=== PATIENT | female | born 1945 | race Caucasian/White ===

== ENCOUNTER 2017-03-28 12:20 | Emergency (ER) | payer OTHER, MEDICARE ==
[~2017-03-28] VITALS: Ht 160 cm; Wt 81.6 kg
[2017-03-28 12:35] VITALS: BP_SYST 152
--- NOTE | 2017-03-28 12:35 | NUR ---
Pt placed in bed 8 with complaints of R lower abdominal pain for the past 2 and a half hours with nausea but denies vomiting or diarrhea. Pt denies trauma and no complaints of pain when touched. No other injuries/complaints per pt or noted.
--- NOTE | 2017-03-28 13:02 | NUR ---
Dr Hart at bedside examining patient
[2017-03-28 13:15] LABS: BASOPHILS # (AUTO) 0.1 K/uL (0.0-0.2); BASOPHILS % (AUTO) 0.5 % (0.0-2.0); EOSINOPHILS # (AUTO) 0.1 K/uL (0.0-0.4); EOSINOPHILS % (AUTO) 0.5 % (0.0-4.0); HEMATOCRIT 41.5 % (36-48); HEMOGLOBIN 13.7 g/dL (12.0-16.0); LYMPHOCYTES # (AUTO) 1.2 K/uL (1.0-5.5); LYMPHOCYTES % (AUTO) 10.6 % (20.5-51.5); MEAN CORPUSCULAR HEMOGLOBIN 28 pg (27-31); MEAN CORPUSCULAR HGB CONC 33 % (32-36); MEAN CORPUSCULAR VOLUME 86 fL (79.0-98.0); MONOCYTES # (AUTO) 0.6 K/uL (0.0-1.0); NEUTROPHILS # (AUTO) 9.2 K/uL (1.8-7.7); NEUTROPHILS % (AUTO) 83.4 % (40.0-70.0); PLATELET COUNT (AUTO) 378 K/uL (130-430); RED BLOOD CELL COUNT(AUTO) 4.83 MIL/uL (4.2-6.2); RED CELL DISTRIBUTION WIDTH 12.6 % (9.0-15.0); WHITE BLOOD COUNT (AUTO) 11.2 K/uL (4.8-10.8)
--- NOTE | 2017-03-28 13:22 | NUR ---
Pt went to radiology in stable condition
[2017-03-28 13:29] LABS: ANION GAP 9 (5-15); CALCIUM 9.5 mg/dL (8.4-11.0); CHLORIDE 101 mmol/L (98-107); CREATININE 0.99 mg/dL (0.55-1.30); GLUCOSE 136 mg/dL (70-99); SODIUM SERUM 139 mmol/L (136-145); UREA NITROGEN, BLOOD 31 mg/dL (8-21)
[2017-03-28 13:35] LABS: ALANINE AMINOTRANSFERASE 44 U/L (12-78); ASPARTATE AMINOTRANSFERASE 31 U/L (10-37); LIPASE 351 U/L (73-393); TOTAL BILIRUBIN 0.6 mg/dL (0.0-1.0)
--- NOTE | 2017-03-28 13:35 | NUR ---
Pt returned from radiology in stable condition
[2017-03-28] MEDS ORDERED: KETOROLAC TROMETHAMINE 60 MG/2 ML VIAL IM ONE (14:00)
--- NOTE | 2017-03-28 14:09 | NUR ---
Pt was given pain medicaiton, pt tolerated well. No noted adverse reaction. Will continue to monitor.
--- NOTE | 2017-03-28 14:42 | NUR ---
Patient given written and verbal discharge instructions and verbalizes understanding. ER MD discussed with patient the results and treatment provided. Patient in stable condition. ID arm band removed. Rx of toradol and cirpo given. Patient educated on pain management and to follow up with PMD. Pain Scale 3. Dr Hart aware, pain medication was given here and prescription for home. Opportunity for questions provided and answered.
[2017-03-28 14:44] VITALS: BP_SYST 148
== END 2017-03-28 14:42 | disposition home or self-care (01) ==
LOC: SED 12:20
DX: N13.2 Hydronephrosis with renal and ureteral calculous obstruction (principal); K76.0 Fatty (change of) liver, not elsewhere classified; Z88.0 Allergy status to penicillin
CPT/HCPCS: 36415; 74176; 80053; 83690; 85025; 96372; 99285; J1885

== ENCOUNTER 2020-10-15 17:46 | Inpatient (IN) | payer OTHER, MEDICARE ==
[~2020-10-15] VITALS: Ht 160 cm; Wt 69.6 kg
[2020-10-15 17:48] VITALS: BP_SYST 161
[2020-10-15] MEDS ORDERED: FUROSEMIDE 40 MG/4 ML VIAL IVP ONE (18:00)
[2020-10-15 18:26] LABS: BASOPHILS # (AUTO) 0.1 K/uL (0.0-0.2); BASOPHILS % (AUTO) 0.6 % (0.0-2.0); EOSINOPHILS # (AUTO) 0.7 K/uL (0.0-0.4); EOSINOPHILS % (AUTO) 4.5 % (0.0-4.0); HEMATOCRIT 39.6 % (36-48); HEMOGLOBIN 13.1 g/dL (12.0-16.0); LYMPHOCYTES # (AUTO) 1.9 K/uL (1.0-5.5); LYMPHOCYTES % (AUTO) 12.7 % (20.5-51.5); MEAN CORPUSCULAR HEMOGLOBIN 29 pg (27-31); MEAN CORPUSCULAR HGB CONC 33 % (32-36); MEAN CORPUSCULAR VOLUME 88 fL (79.0-98.0); MONOCYTES # (AUTO) 1.2 K/uL (0.0-1.0); MONOCYTES % (AUTO) 8.5 % (1.7-9.3); NEUTROPHILS # (AUTO) 10.8 K/uL (1.8-7.7); NEUTROPHILS % (AUTO) 73.7 % (40.0-70.0); PLATELET COUNT (AUTO) 231 K/uL (130-430); RED BLOOD CELL COUNT(AUTO) 4.51 MIL/uL (4.2-6.2); RED CELL DISTRIBUTION WIDTH 14.7 % (9.0-15.0); WHITE BLOOD COUNT (AUTO) 14.7 K/uL (4.8-10.8)
[2020-10-15] MEDS ORDERED: LORazepam 2 MG/ML VIAL IVP ONE (18:30)
[2020-10-15 18:42] LABS: ANION GAP 7 (5-15); CHLORIDE 105 mmol/L (98-107); CREATININE 1.01 mg/dL (0.55-1.30); GLUCOSE 115 mg/dL (70-99); POTASSIUM 3.9 mmol/L (3.5-5.1); SODIUM SERUM 141 mmol/L (136-145); UREA NITROGEN, BLOOD 24 mg/dL (8-21)
[2020-10-15 18:48] LABS: ALANINE AMINOTRANSFERASE 15 U/L (12-78); ALBUMIN 3.7 g/dL (3.4-4.8); ASPARTATE AMINOTRANSFERASE 21 U/L (10-37); TOTAL BILIRUBIN 0.8 mg/dL (0.0-1.0)
[2020-10-15 19:37] LABS: BILIRUBIN,URINE NEGATIVE (NEGATIVE); BLOOD, URINE NEGATIVE (NEGATIVE); CLARITY/URINE CLEAR (CLEAR); GLUCOSE,URINE NEGATIVE (NEGATIVE); KETONES,URINE NEGATIVE (NEGATIVE); LEUKOCYTE ESTERASE ,URINE NEGATIVE (NEGATIVE); NITRITE, URINE NEGATIVE (NEGATIVE); PROTEIN URINE NEGATIVE (NEGATIVE); UROBILINOGEN,URINE 0.2 (0.2-1.0)
[2020-10-15 19:38] LABS: COLOR,URINE STRAW (YELLOW)
[2020-10-15] MEDS ORDERED: CARV3.1246 PO (20:22)
[2020-10-15] MEDS ORDERED: SPIR25TA6 PO (20:22)
[2020-10-15] MEDS ORDERED: LISI10TA29 PO (20:22)
[2020-10-15] MEDS ORDERED: ACETAMINOPHEN 325 MG TABLET PO PRN (21:00)
[2020-10-15] MEDS: SPIRONOLACTONE 25 MG TABLET (ALDACTONE) PO SCH (21:00)
[2020-10-15] MEDS ORDERED: ZOLPIDEM TARTRATE 5 MG TABLET PO PRN (21:00)
[2020-10-15] MEDS ORDERED: MUPIROCIN 2% TOPICAL OINTMENT 22 GM NS PRN (21:00)
[2020-10-15] MEDS ORDERED: MAGNESIUM SULFATE 50 ML IV PRN (21:00)
[2020-10-15] MEDS ORDERED: LORazepam 2 MG/ML VIAL IVP PRN (21:00)
[2020-10-15] MEDS: LISINOPRIL 10 MG TABLET (PRINIVIL) PO SCH (21:00)
[2020-10-15] MEDS ORDERED: POTASSIUM CHLORIDE 20 MEQ TAB.PRT.SR PO PRN (21:00)
[2020-10-15] MEDS ORDERED: ONDANSETRON HCL 4 MG/2 ML VIAL IVP PRN (21:00)
[2020-10-15] MEDS: HEPARIN SODIUM,PORCINE 5,000 UNITS/ML VIAL SUBCUT SCH (21:00)
[2020-10-15] MEDS ORDERED: IPRATROPIUM/ALBUTEROL SULFATE 3 ML AMPUL.NEB (DUONEB) INH PRN (21:00)
[2020-10-15] MEDS ORDERED: DOCUSATE SODIUM 100 MG CAPSULE PO PRN (21:00)
[2020-10-15] MEDS: NACL 0.9% 1,000 ML IV SCH (21:06)
[2020-10-15 22:50] VITALS: BP_SYST 124
[2020-10-16 00:52] VITALS: BP_SYST 124
[2020-10-16 05:09] VITALS: BP_SYST 124
[2020-10-16] MEDS: NACL 0.9% 1,000 ML IV SCH (05:46)
[2020-10-16 06:52] LABS: BASOPHILS % (AUTO) 0.5 % (0.0-2.0); EOSINOPHILS # (AUTO) 0.5 K/uL (0.0-0.4); EOSINOPHILS % (AUTO) 5.4 % (0.0-4.0); HEMATOCRIT 38.4 % (36-48); HEMOGLOBIN 12.8 g/dL (12.0-16.0); LYMPHOCYTES # (AUTO) 1.3 K/uL (1.0-5.5); LYMPHOCYTES % (AUTO) 14.1 % (20.5-51.5); MEAN CORPUSCULAR HEMOGLOBIN 29 pg (27-31); MEAN CORPUSCULAR HGB CONC 33 % (32-36); MEAN CORPUSCULAR VOLUME 87 fL (79.0-98.0); MONOCYTES # (AUTO) 0.8 K/uL (0.0-1.0); MONOCYTES % (AUTO) 8.5 % (1.7-9.3); NEUTROPHILS # (AUTO) 6.5 K/uL (1.8-7.7); NEUTROPHILS % (AUTO) 71.5 % (40.0-70.0); PLATELET COUNT (AUTO) 228 K/uL (130-430); RED BLOOD CELL COUNT(AUTO) 4.43 MIL/uL (4.2-6.2); WHITE BLOOD COUNT (AUTO) 9.1 K/uL (4.8-10.8)
[2020-10-16 07:29] LABS: ANION GAP 9 (5-15); CALCIUM 9.4 mg/dL (8.4-11.0); CHLORIDE 105 mmol/L (98-107); CREATININE 0.98 mg/dL (0.55-1.30); GLUCOSE 102 mg/dL (70-99); POTASSIUM 4.6 mmol/L (3.5-5.1); SODIUM SERUM 145 mmol/L (136-145); UREA NITROGEN, BLOOD 23 mg/dL (8-21)
[2020-10-16 08:25] VITALS: BP_SYST 107
[2020-10-16] MEDS: HEPARIN SODIUM,PORCINE 5,000 UNITS/ML VIAL SUBCUT SCH ×2 (08:30→20:18)
[2020-10-16] MEDS: LISINOPRIL 10 MG TABLET (PRINIVIL) PO SCH ×2 (08:46→21:31)
[2020-10-16] MEDS ORDERED: CARVEDILOL 3.125 MG TABLET (COREG) PO SCH (09:00)
[2020-10-16] MEDS ORDERED: CARVEDILOL 3.125 MG TABLET (COREG) PO ONE (10:00)
[2020-10-16] MEDS ORDERED: FUROSEMIDE 20 MG/2 ML VIAL IVP ONE (10:30)
[2020-10-16 11:26] VITALS: BP_SYST 112
[2020-10-16 15:28] VITALS: BP_SYST 101
[2020-10-16 19:45] VITALS: BP_SYST 104
[2020-10-16] MEDS: CARVEDILOL 3.125 MG TABLET (COREG) PO SCH (20:18)
[2020-10-16] MEDS: SPIRONOLACTONE 25 MG TABLET (ALDACTONE) PO SCH (21:31)
[2020-10-17 00:59] VITALS: BP_SYST 104
[2020-10-17 06:49] LABS: BASOPHILS % (AUTO) 0.6 % (0.0-2.0); EOSINOPHILS # (AUTO) 0.8 K/uL (0.0-0.4); EOSINOPHILS % (AUTO) 10.3 % (0.0-4.0); HEMATOCRIT 38.6 % (36-48); HEMOGLOBIN 12.7 g/dL (12.0-16.0); LYMPHOCYTES # (AUTO) 1.9 K/uL (1.0-5.5); LYMPHOCYTES % (AUTO) 26.4 % (20.5-51.5); MEAN CORPUSCULAR HEMOGLOBIN 29 pg (27-31); MEAN CORPUSCULAR HGB CONC 33 % (32-36); MEAN CORPUSCULAR VOLUME 87 fL (79.0-98.0); MONOCYTES # (AUTO) 0.8 K/uL (0.0-1.0); MONOCYTES % (AUTO) 10.8 % (1.7-9.3); NEUTROPHILS # (AUTO) 3.8 K/uL (1.8-7.7); NEUTROPHILS % (AUTO) 51.9 % (40.0-70.0); PLATELET COUNT (AUTO) 218 K/uL (130-430); RED BLOOD CELL COUNT(AUTO) 4.45 MIL/uL (4.2-6.2); RED CELL DISTRIBUTION WIDTH 14.6 % (9.0-15.0); WHITE BLOOD COUNT (AUTO) 7.3 K/uL (4.8-10.8)
[2020-10-17 07:14] LABS: ANION GAP 7 (5-15); CALCIUM 9.1 mg/dL (8.4-11.0); CHLORIDE 105 mmol/L (98-107); CREATININE 0.81 mg/dL (0.55-1.30); GLUCOSE 87 mg/dL (70-99); POTASSIUM 3.9 mmol/L (3.5-5.1); SODIUM SERUM 143 mmol/L (136-145); UREA NITROGEN, BLOOD 22 mg/dL (8-21)
[2020-10-17 08:07] VITALS: BP_SYST 95
[2020-10-17] MEDS: LISINOPRIL 10 MG TABLET (PRINIVIL) PO SCH ×2 (09:00→20:39)
[2020-10-17] MEDS: CARVEDILOL 3.125 MG TABLET (COREG) PO SCH ×2 (09:00→20:40)
[2020-10-17] MEDS: HEPARIN SODIUM,PORCINE 5,000 UNITS/ML VIAL SUBCUT SCH ×2 (09:00→20:40)
[2020-10-17 11:50] VITALS: BP_SYST 113
[2020-10-17 15:25] VITALS: BP_SYST 119
[2020-10-17 20:00] VITALS: BP_SYST 127
[2020-10-17] MEDS: SPIRONOLACTONE 25 MG TABLET (ALDACTONE) PO SCH (20:39)
[2020-10-18] VITALS: BP_SYST 121
[2020-10-18 06:56] LABS: BASOPHILS % (AUTO) 0.5 % (0.0-2.0); EOSINOPHILS # (AUTO) 0.6 K/uL (0.0-0.4); EOSINOPHILS % (AUTO) 8.7 % (0.0-4.0); HEMATOCRIT 38.8 % (36-48); HEMOGLOBIN 12.7 g/dL (12.0-16.0); LYMPHOCYTES # (AUTO) 1.5 K/uL (1.0-5.5); LYMPHOCYTES % (AUTO) 20.5 % (20.5-51.5); MEAN CORPUSCULAR HEMOGLOBIN 29 pg (27-31); MEAN CORPUSCULAR HGB CONC 33 % (32-36); MEAN CORPUSCULAR VOLUME 87 fL (79.0-98.0); MONOCYTES # (AUTO) 0.7 K/uL (0.0-1.0); MONOCYTES % (AUTO) 9.4 % (1.7-9.3); NEUTROPHILS # (AUTO) 4.5 K/uL (1.8-7.7); NEUTROPHILS % (AUTO) 60.9 % (40.0-70.0); PLATELET COUNT (AUTO) 231 K/uL (130-430); RED BLOOD CELL COUNT(AUTO) 4.45 MIL/uL (4.2-6.2); RED CELL DISTRIBUTION WIDTH 14.8 % (9.0-15.0); WHITE BLOOD COUNT (AUTO) 7.4 K/uL (4.8-10.8)
[2020-10-18 06:59] LABS: ANION GAP 7 (5-15); CALCIUM 9.2 mg/dL (8.4-11.0); CHLORIDE 107 mmol/L (98-107); CREATININE 0.78 mg/dL (0.55-1.30); GLUCOSE 94 mg/dL (70-99); SODIUM SERUM 143 mmol/L (136-145); UREA NITROGEN, BLOOD 16 mg/dL (8-21)
[2020-10-18 08:00] VITALS: BP_SYST 121
[2020-10-18] MEDS: LISINOPRIL 10 MG TABLET (PRINIVIL) PO SCH (08:44)
[2020-10-18] MEDS: CARVEDILOL 3.125 MG TABLET (COREG) PO SCH ×2 (09:00→10:53)
[2020-10-18] MEDS: HEPARIN SODIUM,PORCINE 5,000 UNITS/ML VIAL SUBCUT SCH (09:00)
[2020-10-18] MEDS ORDERED: LORA10TA7 PO (10:02)
[2020-10-18] MEDS ORDERED: ALBU8.5H8 INH (10:02)
[2020-10-18 10:35] VITALS: BP_SYST 121
== END 2020-10-18 11:10 | disposition home or self-care (01) | DRG 292 ==
LOC: SED 17:46 → STU 18:50
PROVIDERS: ADMIT General Practice; ATTEND General Practice
DX: I11.0 Hypertensive heart disease with heart failure (principal); N39.0 Urinary tract infection, site not specified; J43.9 Emphysema, unspecified; I50.43 Acute on chronic combined systolic (congestive) and diastolic (congestive) heart failure; I34.0 Nonrheumatic mitral (valve) insufficiency; F17.210 Nicotine dependence, cigarettes, uncomplicated; R09.02 Hypoxemia; Z20.822 Contact with and (suspected) exposure to COVID-19; Z88.0 Allergy status to penicillin; Z88.2 Allergy status to sulfonamides; Z79.899 Other long term (current) drug therapy; Z87.440 Personal history of urinary (tract) infections; Z90.710 Acquired absence of both cervix and uterus
CPT/HCPCS: 36415; 71045; 80048; 80053; 81003; 83036; 83735; 83880; 84484; 85025; 85379; 93005; 93306; 93970; 96361; 96374; 96375; 97163-GP; 99285; G0378; J1940; J2060

== ENCOUNTER 2023-04-30 15:42 | Emergency (ER) | payer OTHER, MEDICARE ==
[~2023-04-30] VITALS: Ht 160 cm; Wt 68.0 kg
[~2023-04-30 15:42] MED LIST: ALBU8.5H8 INH; CARV3.1246 PO; LISI10TA29 PO; LORA10TA7 PO; SPIR25TA6 PO
[2023-04-30 15:45] VITALS: BP_SYST 118; PULSE 91; RESP 18; TEMP 97.8; O2SAT 97
[2023-04-30] MEDS ORDERED: DIPHTH,PERTUSS(ACELL),TET VAC 0.5 ML VIAL (Tdap) I.M. ONE (16:45)
[2023-04-30] MEDS ORDERED: BACITRACIN 1 GM OINT TP ONE (16:45)
[2023-04-30] MEDS ORDERED: LIDOCAINE 1% 10 MG/ML, 20 ML MDV INJ ONE (16:45)
[2023-04-30 17:04] VITALS: BP_SYST 118; PULSE 91; RESP 18; TEMP 97.8; O2SAT 97
== END 2023-04-30 17:04 | disposition home or self-care (01) ==
LOC: SED 15:42
DX: S61.216A Laceration without foreign body of right little finger without damage to nail, initial encounter (principal); S61.411A Laceration without foreign body of right hand, initial encounter; I10 Essential (primary) hypertension; Z88.0 Allergy status to penicillin; Z88.1 Allergy status to other antibiotic agents; Z88.2 Allergy status to sulfonamides; Z79.899 Other long term (current) drug therapy; W18.40XA Slipping, tripping and stumbling without falling, unspecified, initial encounter; Y93.89 Activity, other specified; Y92.89 Other specified places as the place of occurrence of the external cause; Y99.8 Other external cause status
CPT/HCPCS: 90715; 99283; J2001

== ENCOUNTER 2023-10-19 14:16 | Inpatient (IN) | payer OTHER, MEDICARE ==
[~2023-10-19] VITALS: Ht 160 cm; Wt 70.3 kg
[2023-10-19 14:30] VITALS: BP_SYST 126; PULSE 94; RESP 22; TEMP 98.3; O2SAT 98
[2023-10-19 15:03] LABS: BASOPHILS % (AUTO) 0.3 % (0.0-2.0); EOSINOPHILS # (AUTO) 0.1 K/uL (0.0-0.4); EOSINOPHILS % (AUTO) 0.9 % (0.0-4.0); HEMATOCRIT 39.8 % (36-48); HEMOGLOBIN 13.2 g/dL (12.0-16.0); LYMPHOCYTES # (AUTO) 0.9 K/uL (1.0-5.5); LYMPHOCYTES % (AUTO) 8.1 % (20.5-51.5); MEAN CORPUSCULAR HEMOGLOBIN 29 pg (27-31); MEAN CORPUSCULAR HGB CONC 33 % (32-36); MEAN CORPUSCULAR VOLUME 88 fL (79.0-98.0); MONOCYTES # (AUTO) 0.7 K/uL (0.0-1.0); MONOCYTES % (AUTO) 6.9 % (1.7-9.3); NEUTROPHILS # (AUTO) 8.9 K/uL (1.8-7.7); NEUTROPHILS % (AUTO) 83.8 % (40.0-70.0); PLATELET COUNT (AUTO) 272 K/uL (130-430); RED BLOOD CELL COUNT(AUTO) 4.55 MIL/uL (4.2-6.2); RED CELL DISTRIBUTION WIDTH 13.8 % (9.0-15.0); WHITE BLOOD COUNT (AUTO) 10.7 K/uL (4.8-10.8)
[2023-10-19 15:37] LABS: ANION GAP 8 (5-15); CALCIUM 9.4 mg/dL (8.4-11.0); CARBON DIOXIDE 30 mmol/L (23-29); CHLORIDE 104 mmol/L (98-107); CREATININE 1.33 mg/dL (0.55-1.30); GLUCOSE 165 mg/dL (74-106); POTASSIUM 4.2 mmol/L (3.5-5.1); SODIUM SERUM 142 mmol/L (136-145); UREA NITROGEN, BLOOD 34 mg/dL (8-21)
[2023-10-19] MEDS ORDERED: DILT60TA3 PO (15:37)
[2023-10-19] MEDS ORDERED: FURO40TA5 PO (15:37)
[2023-10-19] MEDS ORDERED: SPIR25TA PO (15:38)
[2023-10-19 15:58] LABS: PROTHROMBIN TIME 10.1 SECS (9.5-12.5)
[2023-10-19] MEDS ORDERED: ONDANSETRON HCL 4 MG/2 ML VIAL IVP PRN (16:00)
[2023-10-19] MEDS ORDERED: CLINDAMYCIN PHOSPHATE 300 MG/2 ML VIAL IV SCH (16:00)
[2023-10-19] MEDS ORDERED: HYDROcodone/ACETAMIN 5-325 MG TAB (NORCO/ VICODIN) PO PRN (16:00)
[2023-10-19] MEDS ORDERED: MORPHINE 4 MG INJ. 4 MG/ML VIAL IVP PRN (16:00)
[2023-10-19] MEDS ORDERED: CLINDAMYCIN 300 MG in D5W 50 ML IV SCH (17:30)
[2023-10-19] MEDS: CLINDAMYCIN 300 MG/50 ML D5W 50 ML IV ONE (17:59)
[2023-10-19] MEDS: D5/0.45 NS 1,000 ML IV SCH (19:41)
[2023-10-19] MEDS: ACETAMINOPHEN 325 MG TABLET PO PRN (20:40)
[2023-10-19] MEDS: DILTIAZEM HCL 30 MG TABLET PO SCH (21:09)
[2023-10-19] MEDS: SPIRONOLACTONE 25 MG TABLET (ALDACTONE) PO SCH (21:09)
[2023-10-19 21:12] VITALS: BP_SYST 123; PULSE 85; RESP 18; TEMP 99.2; O2SAT 97
[2023-10-19] MEDS: CLINDAMYCIN PHOS 600 MG/ D5W 50 ML PREMIX IV SCH (23:19)
[2023-10-20] VITALS: BP_SYST 120; PULSE 72; RESP 16; TEMP 97.3; O2SAT 95
[2023-10-20 04:43] LABS: BASOPHILS % (AUTO) 0.3 % (0.0-2.0); EOSINOPHILS # (AUTO) 0.1 K/uL (0.0-0.4); EOSINOPHILS % (AUTO) 0.6 % (0.0-4.0); HEMATOCRIT 35.8 % (36-48); HEMOGLOBIN 11.8 g/dL (12.0-16.0); LYMPHOCYTES # (AUTO) 1.4 K/uL (1.0-5.5); LYMPHOCYTES % (AUTO) 13.1 % (20.5-51.5); MEAN CORPUSCULAR HEMOGLOBIN 29 pg (27-31); MEAN CORPUSCULAR HGB CONC 33 % (32-36); MEAN CORPUSCULAR VOLUME 87 fL (79.0-98.0); MONOCYTES # (AUTO) 1.1 K/uL (0.0-1.0); MONOCYTES % (AUTO) 10.4 % (1.7-9.3); NEUTROPHILS # (AUTO) 8.1 K/uL (1.8-7.7); NEUTROPHILS % (AUTO) 75.6 % (40.0-70.0); PLATELET COUNT (AUTO) 256 K/uL (130-430); RED CELL DISTRIBUTION WIDTH 13.4 % (9.0-15.0); WHITE BLOOD COUNT (AUTO) 10.7 K/uL (4.8-10.8)
[2023-10-20 05:03] LABS: ALANINE AMINOTRANSFERASE 21 U/L (12-78); ALBUMIN 3.5 g/dL (3.4-4.8); ANION GAP 5 (5-15); ASPARTATE AMINOTRANSFERASE 9 U/L (10-37); CALCIUM 8.9 mg/dL (8.4-11.0); CARBON DIOXIDE 31 mmol/L (23-29); CHLORIDE 104 mmol/L (98-107); CREATININE 1.23 mg/dL (0.55-1.30); GLUCOSE 109 mg/dL (74-106); POTASSIUM 4.1 mmol/L (3.5-5.1); SODIUM SERUM 140 mmol/L (136-145); TOTAL BILIRUBIN 1.2 mg/dL (0.0-1.0); TOTAL PROTEIN, SERUM 7.2 g/dL (6.4-8.3); UREA NITROGEN, BLOOD 28 mg/dL (8-21)
[2023-10-20 08:00] VITALS: BP_SYST 109; PULSE 80; RESP 16; TEMP 97.6; O2SAT 93
[2023-10-20] MEDS: FUROSEMIDE 40 MG TABLET PO SCH (09:01)
[2023-10-20 12:09] VITALS: BP_SYST 97; PULSE 71; RESP 16; TEMP 98.6; O2SAT 96
[2023-10-20 17:33] VITALS: BP_SYST 118; PULSE 88; RESP 16; TEMP 98.5; O2SAT 98
[2023-10-20 19:00] VITALS: O2SAT 99
[2023-10-20 20:00] VITALS: BP_SYST 116; PULSE 83; RESP 18; TEMP 97.7; O2SAT 99
[2023-10-21] VITALS (7 sets, daily range): BP systolic 116–123; PULSE 65–73; RESP 18–19; TEMP 96.1–97.9; O2SAT 65–97
[2023-10-21 13:29] LABS: BASOPHILS % (AUTO) 0.5 % (0.0-2.0); EOSINOPHILS # (AUTO) 0.2 K/uL (0.0-0.4); EOSINOPHILS % (AUTO) 2.6 % (0.0-4.0); HEMATOCRIT 35.6 % (36-48); HEMOGLOBIN 11.6 g/dL (12.0-16.0); LYMPHOCYTES # (AUTO) 1.3 K/uL (1.0-5.5); MEAN CORPUSCULAR HEMOGLOBIN 29 pg (27-31); MEAN CORPUSCULAR HGB CONC 33 % (32-36); MEAN CORPUSCULAR VOLUME 89 fL (79.0-98.0); MONOCYTES # (AUTO) 0.7 K/uL (0.0-1.0); MONOCYTES % (AUTO) 9.9 % (1.7-9.3); NEUTROPHILS # (AUTO) 4.5 K/uL (1.8-7.7); PLATELET COUNT (AUTO) 236 K/uL (130-430); RED BLOOD CELL COUNT(AUTO) 4.01 MIL/uL (4.2-6.2); RED CELL DISTRIBUTION WIDTH 13.4 % (9.0-15.0); WHITE BLOOD COUNT (AUTO) 6.7 K/uL (4.8-10.8)
[2023-10-21 15:24] LABS: ALANINE AMINOTRANSFERASE 40 U/L (12-78); ALBUMIN 3.2 g/dL (3.4-4.8); ANION GAP 6 (5-15); ASPARTATE AMINOTRANSFERASE 38 U/L (10-37); CARBON DIOXIDE 33 mmol/L (23-29); CHLORIDE 102 mmol/L (98-107); CREATININE 1.18 mg/dL (0.55-1.30); GLUCOSE 135 mg/dL (74-106); POTASSIUM 3.7 mmol/L (3.5-5.1); SODIUM SERUM 141 mmol/L (136-145); TOTAL BILIRUBIN 0.7 mg/dL (0.0-1.0); TOTAL PROTEIN, SERUM 7.3 g/dL (6.4-8.3); UREA NITROGEN, BLOOD 23 mg/dL (8-21)
[2023-10-21] MEDS: ACETAMINOPHEN 325 MG TABLET PO PRN (22:32)
[2023-10-22] VITALS: BP_SYST 137; PULSE 71; RESP 18; TEMP 97.3; O2SAT 95
[2023-10-22 06:57] LABS: BASOPHILS % (AUTO) 0.6 % (0.0-2.0); EOSINOPHILS # (AUTO) 0.3 K/uL (0.0-0.4); EOSINOPHILS % (AUTO) 4.5 % (0.0-4.0); HEMATOCRIT 36.4 % (36-48); LYMPHOCYTES # (AUTO) 1.7 K/uL (1.0-5.5); LYMPHOCYTES % (AUTO) 23.7 % (20.5-51.5); MEAN CORPUSCULAR HEMOGLOBIN 29 pg (27-31); MEAN CORPUSCULAR HGB CONC 33 % (32-36); MEAN CORPUSCULAR VOLUME 88 fL (79.0-98.0); MONOCYTES # (AUTO) 0.8 K/uL (0.0-1.0); MONOCYTES % (AUTO) 10.8 % (1.7-9.3); NEUTROPHILS # (AUTO) 4.2 K/uL (1.8-7.7); NEUTROPHILS % (AUTO) 60.4 % (40.0-70.0); PLATELET COUNT (AUTO) 254 K/uL (130-430); RED BLOOD CELL COUNT(AUTO) 4.15 MIL/uL (4.2-6.2); RED CELL DISTRIBUTION WIDTH 13.4 % (9.0-15.0)
[2023-10-22 07:04] LABS: ALANINE AMINOTRANSFERASE 58 U/L (12-78); ALBUMIN 3.3 g/dL (3.4-4.8); ANION GAP 5 (5-15); ASPARTATE AMINOTRANSFERASE 52 U/L (10-37); CALCIUM 9.2 mg/dL (8.4-11.0); CARBON DIOXIDE 32 mmol/L (23-29); CHLORIDE 103 mmol/L (98-107); CREATININE 1.06 mg/dL (0.55-1.30); GLUCOSE 90 mg/dL (74-106); PHOSPHORUS 3.7 mg/dL (2.7-4.5); POTASSIUM 3.6 mmol/L (3.5-5.1); SODIUM SERUM 140 mmol/L (136-145); TOTAL BILIRUBIN 0.7 mg/dL (0.0-1.0); TOTAL PROTEIN, SERUM 7.1 g/dL (6.4-8.3); UREA NITROGEN, BLOOD 20 mg/dL (8-21)
[2023-10-22 08:00] VITALS: BP_SYST 129; PULSE 67; RESP 18; TEMP 97.4; O2SAT 96
[2023-10-22 08:26] VITALS: O2SAT 96
[2023-10-22] MEDS: AMPICILLIN SODIUM/SULBACTAM NA 3 GM in NS 100 ML IV ONE (11:10)
[2023-10-22 12:55] VITALS: BP_SYST 132; PULSE 85; RESP 17; TEMP 97.5; O2SAT 97
[2023-10-22] MEDS ORDERED: DIPHENHYDRAMINE INJ 50 MG/ML VIAL IVP ONE (13:00)
[2023-10-22 15:47] VITALS: BP_SYST 114; RESP 18; TEMP 97.5; O2SAT 94
[2023-10-22 20:00] VITALS: BP_SYST 127; PULSE 79; RESP 18; TEMP 97.5; O2SAT 93
[2023-10-22] MEDS: MELATONIN 5 MG TABLET PO SCH (21:30)
[2023-10-22] MEDS: AMPICILLIN SODIUM/SULBACTAM NA 3 GM in NS 100 ML IV SCH (21:33)
[2023-10-23 08:44] VITALS: BP_SYST 126; PULSE 95; RESP 16; TEMP 97.5; O2SAT 95
[2023-10-23 09:30] VITALS: O2SAT 95
[2023-10-23 10:18] LABS: BASOPHILS % (AUTO) 0.6 % (0.0-2.0); EOSINOPHILS # (AUTO) 0.3 K/uL (0.0-0.4); HEMATOCRIT 35.9 % (36-48); HEMOGLOBIN 11.8 g/dL (12.0-16.0); LYMPHOCYTES # (AUTO) 1.1 K/uL (1.0-5.5); LYMPHOCYTES % (AUTO) 16.5 % (20.5-51.5); MEAN CORPUSCULAR HEMOGLOBIN 29 pg (27-31); MEAN CORPUSCULAR HGB CONC 33 % (32-36); MEAN CORPUSCULAR VOLUME 87 fL (79.0-98.0); MONOCYTES # (AUTO) 0.6 K/uL (0.0-1.0); MONOCYTES % (AUTO) 8.8 % (1.7-9.3); NEUTROPHILS # (AUTO) 4.7 K/uL (1.8-7.7); NEUTROPHILS % (AUTO) 70.1 % (40.0-70.0); PLATELET COUNT (AUTO) 264 K/uL (130-430); RED BLOOD CELL COUNT(AUTO) 4.14 MIL/uL (4.2-6.2); RED CELL DISTRIBUTION WIDTH 13.2 % (9.0-15.0); WHITE BLOOD COUNT (AUTO) 6.8 K/uL (4.8-10.8)
[2023-10-23] MEDS ORDERED: AUG875 PO (11:19)
[2023-10-23 12:00] VITALS: BP_SYST 136; PULSE 76; RESP 17; TEMP 97.4; O2SAT 96
[2023-10-23 13:04] VITALS: BP_SYST 136; PULSE 76; RESP 17; TEMP 97.4; O2SAT 96
== END 2023-10-23 14:30 | disposition home or self-care (01) | DRG 603 ==
LOC: SED 14:16 → STU 15:51 → SMU 10-22 12:52
PROVIDERS: ADMIT Family Medicine; ATTEND Family Medicine
DX: L03.113 Cellulitis of right upper limb (principal); N17.9 Acute kidney failure, unspecified; I34.0 Nonrheumatic mitral (valve) insufficiency; I50.9 Heart failure, unspecified; N18.9 Chronic kidney disease, unspecified; W55.01XA Bitten by cat, initial encounter; Y93.89 Activity, other specified; Y92.89 Other specified places as the place of occurrence of the external cause; Y99.8 Other external cause status; Z79.899 Other long term (current) drug therapy; Z90.710 Acquired absence of both cervix and uterus; Z88.0 Allergy status to penicillin; Z87.891 Personal history of nicotine dependence; Z79.51 Long term (current) use of inhaled steroids; Z88.2 Allergy status to sulfonamides; Z88.8 Allergy status to other drugs, medicaments and biological substances; R00.8 Other abnormalities of heart beat
CPT/HCPCS: 36415; 71045; 73090; 80048; 80053; 83605; 83735; 84100; 84484; 85025; 85610; 85730; 87040; 93005; 99285; G0378; J0295; J2270; J3490; J7060

== ENCOUNTER 2023-12-19 08:00 | Emergency (ER) | payer OTHER, MEDICARE ==
[~2023-12-19] VITALS: Ht 157.5 cm; Wt 56.7 kg
[2023-12-19 08:00] VITALS: BP_SYST 134; PULSE 85; RESP 23; TEMP 98.3; O2SAT 95
[~2023-12-19 08:00] MED LIST changes: -ALBU8.5H8 INH; +AUG875 PO; -CARV3.1246 PO; +DILT60TA3 PO; +FURO40TA5 PO; -LISI10TA29 PO; -LORA10TA7 PO; +SPIR25TA PO; -SPIR25TA6 PO
[2023-12-19 08:46] LABS: COVID19 ANTIGEN SOFIA FIA NEGATIVE (NEGATIVE)
[2023-12-19 08:50] LABS: BASOPHILS % (AUTO) 0.4 % (0.0-2.0); EOSINOPHILS # (AUTO) 0.1 K/uL (0.0-0.4); EOSINOPHILS % (AUTO) 1.1 % (0.0-4.0); HEMATOCRIT 38.2 % (36-48); HEMOGLOBIN 12.5 g/dL (12.0-16.0); LYMPHOCYTES # (AUTO) 1.2 K/uL (1.0-5.5); LYMPHOCYTES % (AUTO) 11.2 % (20.5-51.5); MEAN CORPUSCULAR HEMOGLOBIN 29 pg (27-31); MEAN CORPUSCULAR HGB CONC 33 % (32-36); MEAN CORPUSCULAR VOLUME 87 fL (79.0-98.0); MONOCYTES # (AUTO) 0.7 K/uL (0.0-1.0); MONOCYTES % (AUTO) 6.4 % (1.7-9.3); NEUTROPHILS # (AUTO) 8.5 K/uL (1.8-7.7); NEUTROPHILS % (AUTO) 80.9 % (40.0-70.0); PLATELET COUNT (AUTO) 291 K/uL (130-430); RED BLOOD CELL COUNT(AUTO) 4.38 MIL/uL (4.2-6.2); RED CELL DISTRIBUTION WIDTH 13.6 % (9.0-15.0); WHITE BLOOD COUNT (AUTO) 10.5 K/uL (4.8-10.8)
[2023-12-19 08:57] LABS: INFLUENZA TYPE A Negative (NEGATIVE)
[2023-12-19 08:59] LABS: INFLUENZA TYPE B POSITIVE (NEGATIVE)
[2023-12-19 09:02] LABS: PROTHROMBIN TIME 10.5 SECS (9.5-12.5)
[2023-12-19 09:15] LABS: ALANINE AMINOTRANSFERASE 58 U/L (12-78); ALBUMIN 3.5 g/dL (3.4-4.8); ANION GAP 5 (5-15); ASPARTATE AMINOTRANSFERASE 78 U/L (10-37); BILIRUBIN,DIRECT 0.2 mg/dL (0.0-0.3); CALCIUM 9.3 mg/dL (8.4-11.0); CARBON DIOXIDE 32 mmol/L (23-29); CHLORIDE 103 mmol/L (98-107); CREATINE KINASE, TOTAL 92 U/L (26-192); CREATININE 1.18 mg/dL (0.55-1.30); GLUCOSE 144 mg/dL (74-106); POTASSIUM 3.5 mmol/L (3.5-5.1); SODIUM SERUM 140 mmol/L (136-145); TOTAL BILIRUBIN 1.1 mg/dL (0.0-1.0); TOTAL PROTEIN, SERUM 7.2 g/dL (6.4-8.3); UREA NITROGEN, BLOOD 28 mg/dL (8-21)
[2023-12-19] MEDS: OSELTAMIVIR PHOSPHATE 75 MG CAPSULE PO ONE (10:48)
[2023-12-19 12:25] VITALS: BP_SYST 163; PULSE 86; RESP 29; TEMP 98.4; O2SAT 95
== END 2023-12-19 11:53 | disposition short-term general hospital (02) ==
LOC: SED 08:00
DX: J11.1 Influenza due to unidentified influenza virus with other respiratory manifestations (principal); Z20.822 Contact with and (suspected) exposure to COVID-19; I11.0 Hypertensive heart disease with heart failure; I50.9 Heart failure, unspecified; Z88.0 Allergy status to penicillin; Z88.1 Allergy status to other antibiotic agents; Z88.2 Allergy status to sulfonamides; Z79.899 Other long term (current) drug therapy; Z79.2 Long term (current) use of antibiotics
CPT/HCPCS: 36415; 71045; 80048; 80076; 82550; 83605; 83880; 84484; 85025; 85610; 85730; 93005; 99285; G9035